=== PATIENT | female | born 1970 | race Caucasian/White ===

== ENCOUNTER 2022-12-01 20:26 | Emergency (ER) | payer OTHER, SELFPAY ==
[2022-12-01 20:36] VITALS: BP 106/71; PULSE 93; RESP 16; TEMP 36.3; O2SAT 98; BMI 21.8
[2022-12-01 23:16] LABS: Lactate* 0.6 mmol/L (0.5-1.9)
[2022-12-01 23:19] LABS: Basophils Absolute Auto 0.06 K/uL (0.00-0.30); Basophils Percent Auto 0.8 % (0.0-3.0); Eosinophils Absolute Auto 0.11 K/uL (0.00-0.50); Eosinophils Percent Auto 1.4 % (0.0-7.0); Hematocrit 35.3 % (33.0-51.0); Hemoglobin* 11.3 gm/dL (12.0-16.0); Immature Granulocytes Abs Auto 0.05 K/uL (0.00-0.30); Immature Granulocytes Pct Auto 0.6 %; Lymphocytes Absolute Auto 2.64 K/uL (0.90-2.90); Lymphocytes Percent Auto 34.2 % (20-44); Mean Corpuscular HGB Conc 32 gm/dL (32-36); Mean Corpuscular Hemoglobin 29 pg (26-34); Mean Corpuscular Volume 89 fL (80-100); Monocytes Percent Auto 9.1 % (0.0-11.0); Neutrophils Absolute Auto 4.16 K/uL (1.7-7.0); Neutrophils Percent Auto 53.9 % (42.0-72.0); Platelet Count* 325 K/uL (140-440); RDW Coefficient of Variation % 13.8 % (11.5-15.5); Red Blood Count 3.95 m/uL (4.00-5.20); White Blood Count* 7.72 K/uL (4.50-11.00)
[2022-12-01 23:20] LABS: Slide Review Reflex No
[2022-12-01 23:33] LABS: Albumin* 4.5 g/dL (3.3-5.0); Chloride* 95 mmol/L (96-114)
[2022-12-01 23:34] LABS: Sodium* 136 mmol/L (135-149)
[2022-12-01 23:36] LABS: Anion Gap 9 mEq/L (7-15); Aspartate Amino Transferase* 29 U/L (12-35); Bilirubin Total* 0.4 mg/dL (0.1-1.5); Carbon Dioxide* 32 mmol/L (20-32); Est. Creatinine Clearance* 52.05; Estimated Glomerular Filt Rate 68 ml/min; Total Protein* 7.8 g/dL (6.0-8.3)
[2022-12-01 23:37] LABS: Alanine Aminotransferase* 18 U/L (4-35); Alkaline Phosphatase* 78 U/L (40-150); Blood Urea Nitrogen* 20 mg/dL (7-30); Calcium* 9.9 mg/dL (8.4-10.6); Glucose* 83 mg/dL (60-115); Lipase* 221 U/L (23-300)
[2022-12-01 23:40] LABS: C Reactive Protein* < 0.5 mg/dL (0.5-1.0)
[2022-12-01] MEDS: POTASSIUM BICARB 25 MEQ EFFERVESCENT TAB 50 MEQ PO (23:47)
[2022-12-01 23:56] LABS: Magnesium* 2.3 mg/dL (1.5-2.6)
[2022-12-02 00:30] LABS: Appearance Urine Slightly Cloudy (Clear); Bilirubin Urine Negative (Negative); Blood Urine Negative (Negative); Color Urine Yellow (Yellow); Glucose Urine Negative (Negative); Ketones Urine Negative (Negative); Leukocyte Esterase Urine Trace (Negative); Nitrite Urine Negative (Negative); Protein Urine Negative (Negative); Urobilinogen Urine 0.2 (0.2-1.0); pH Urine 5.5 (5.0-8.5)
[2022-12-02 00:38] LABS: Bacteria Urine Moderate; RBC Urine 0-2 (0-2); Squamous Epithelial Cell Urine Moderate (None-Few); WBC Urine 0-2 (0-5)
[2022-12-02 01:00] VITALS: BP 121/76; PULSE 72; RESP 16; O2SAT 98
--- NOTE | 2022-12-02 01:02 | ED_ITS ---
HPI - General Adult General Date Seen: 12/02/22 Chief complaint: Abdominal Pain Stated complaint: Stomach pain Time Seen by Provider: 12/01/22 22:41 Source: patient Mode of arrival: ambulatory Limitations: no limitations History of Present Illness HPI narrative: Patient is a 52-year-old male who normally goes to a doctor at [facility], and also apparently has been seen at [facility] for multiple surgeries. She has a history of chronic abdominal pain which is historically in the left upper quadrant. She tells me that she was told this was due to a ?nerve bundle, or at least that is what it was attributed to is no one could really figure out what the pain was from. She has had spinal stimulators, tens unit, lidocaine patches as ways to manage this pain. She has been dealing with it for 10 years. It sounds as if this has been managed at [facility], she has seen a GI specialist, and she has her regular doctor as well. We have not seen her previously. She has had a CT scan in the recent past, she is not certain exactly when. She was supposed to get a colonoscopy at some point during [facility] but it did not happen as she says that she failed to follow-up. In any case she says over the past week her pain has been worse and she feels that her stomach is abnormally gurgly. She also feels bloated. She alternates between constipation and diarrhea. She does believe that she has been diagnosed with irritable bowel syndrome previously and she takes Hycosamine. She has not had vomiting recently. She denies fevers. No black or bloody stools. No urinary symptoms. Related Data Home Medications Medication Instructions Recorded Confirmed citalopram 20 mg tablet 20 mg PO 04/22/22 04/22/22 hyoscyamine sulfate 0.125 mg tablet 0.125 mg PO 04/22/22 04/22/22 Tylenol 12/01/22 dextroamphetamine-amphetamine 5 mg 1 tab PO DAILY 12/01/22 12/01/22 tablet dextroamphetamine-amphetamine ER 1 cap PO DAILY 12/01/22 12/01/22 30 mg 24hr capsule,extend release (Adderall XR) ibuprofen 12/01/22 Previous Rx's Medication Instructions Recorded potassium chloride 20 mEq 20 meq PO DAILY #10 tabs 12/02/22 tablet,extended release Allergies Allergy/AdvReac Type Severity Reaction Status Date / Time ketamine Allergy Verified 12/01/22 20:40 gabapentin Allergy Unknown Uncoded 04/22/22 18:13 Tramadol Allergy Unknown Uncoded 04/22/22 18:13 Review of Systems Status of ROS: Reports: 6 or more systems reviewed and unremarkable except as noted in History and below [facility] Social History Smoking Status: Never smoker How often do you have a drink containing alcohol: monthly or less AUDIT-C Alcohol total score: 1 Non-prescribed substance use: denies use Exam Narrative: Exam Narrative: Vital signs as noted above. In general, an alert, nontoxic woman. Breathing easily, appears comfortable. Head: Normocephalic, atraumatic. Eyes: Pupils are equal reactive. Extraocular movements are full. Conjunctivae are normal. ENT: Mucous membranes are moist. Neck: Supple without lymphadenopathy. Heart: Regular rate and rhythm. No murmur or rub. Lungs: Clear bilaterally. No increased work of breathing, crackles or wheezes. Abdomen: Soft, mild diffuse tenderness without rebound guarding or rigidity. She seems to intentionally protrude her abdomen during the exam and then relax it afterwards. Extremities: Well perfused. No edema. No calf tenderness. Pulses intact. Neurologic: Patient is alert and oriented to person and place. Speech is fluent. Face is symmetric. Moves all extremities equally. Affect: Labile. Skin: Warm and dry. Well perfused. Const: Vital Signs, click to edit/add: Vital Signs - 24 hr 12/01/22 20:36 Temperature 97.4 F L Pulse Rate [Left P ulse Oximeter] 93 Respiratory Rate 16 Blood Pressure [Ri ght Upper Arm] 106/71 Pulse Oximetry 98 Oxygen Delivery Me thod Room Air Documenting provider has reviewed patient's vital signs: yes Course Course ED Course: I suggested to her that we start with some labs. I felt that as the symptoms seem to be somewhat acute on chronic that if labs were normal with symptoms ongoing for a week that imaging was likely to be unrevealing. Her white count returned normal with the normal diff, hemoglobin was 11.3. Her potassium was low at 3 magnesium was normal. Sodium was normal, BUN and creatinine were normal. LFTs were within normal limits, CRP was less than 0.5. Lipase was 221. UA was negative. No ketones, 0-2 red cells, 0-2 white cells. Lactate was 0.6. I have reviewed all this with her. I did give her 50 mEq of potassium and prescribed potassium for home replacement. She asked what she should take at home for pain. I have reviewed with her that I would stick with ibuprofen and/or Tylenol. I do not feel comfortable changing her irritable bowel medications as I simply do not have a lot of experience treating irritable bowel and I do not know the progression of medications which is recommended. I have suggested that she contact her primary doctor through their portal tomorrow and ask for recommendations. I do think with a week of symptoms, a benign exam and completely normal labs that imaging is simply not needed tonight. She is clearly upset with me, she started to leave without having her IV taken out and had to stop her to allow the nurse to take out her IV. She was given discharge instructions. Vital Signs Vital signs: Initial Vital Signs Temperature 97.4 F L 12/01/22 20:36 Temperature Source Temporal Artery Scan 12/01/22 20:36 Pulse Rate 93 12/01/22 20:36 Respiratory Rate 16 12/01/22 20:36 Blood Pressure 106/71 12/01/22 20:36 Blood Pressure Mean 82 12/01/22 20:36 Blood Pressure Position Sitting 12/01/22 20:36 Pulse Oximetry 98 12/01/22 20:36 Oxygen Delivery Method Room Air 12/01/22 20:36 Vital Signs Temperature 97.4 F L 12/01/22 20:36 Pulse Rate 93 12/01/22 20:36 Respiratory Rate 16 12/01/22 20:36 Blood Pressure 106/71 12/01/22 20:36 Pulse Oximetry 98 12/01/22 20:36 Oxygen Delivery Method Room Air 12/01/22 20:36 Temperature 97.4 F L 12/01/22 20:36 Pulse Rate 93 12/01/22 20:36 Respiratory Rate 16 12/01/22 20:36 Blood Pressure 106/71 12/01/22 20:36 Pulse Oximetry 98 12/01/22 20:36 Oxygen Delivery Method Room Air 12/01/22 20:36 Medical Decision Making Lab Data Labs: Lab Results 12/01/22 12/02/22 Range/Units 23:10 00:15 WBC 7.72 (4.50-11.00) K/uL RBC 3.95 L (4.00-5.20) m/uL Hgb 11.3 L (12.0-16.0) gm/dL Hct 35.3 (33.0-51.0) % MCV 89 (80-100) fL MCH 29 (26-34) pg MCHC 32 (32-36) gm/dL RDW Coeff of Alejandro 13.8 (11.5-15.5) % Plt Count 325 (140-440) K/uL Neut % (Auto) 53.9 (42.0-72.0) % Lymph % (Auto) 34.2 (20-44) % Mcpherson % (Auto) 9.1 (0.0-11.0) % Eos % (Auto) 1.4 (0.0-7.0) % Baso % (Auto) 0.8 (0.0-3.0) % Neut # (Auto) 4.16 (1.7-7.0) K/uL Lymph # (Auto) 2.64 (0.90-2.90) K/uL Mcpherson # (Auto) 0.70 (0.00-0.90) K/UL Eos # (Auto) 0.11 (0.00-0.50) K/uL Baso # (Auto) 0.06 (0.00-0.30) K/uL Abs Immat Gran (auto) 0.05 (0.00-0.30) K/uL Imm/Tot Granulo (auto) 0.6 % Sodium 136 (135-149) mmol/L Potassium 3.0 L (3.6-5.1) mmol/L Chloride 95 L (96-114) mmol/L Carbon Dioxide 32 (20-32) mmol/L Anion Gap 9 (7-15) mEq/L BUN 20 (7-30) mg/dL Creatinine 1.0 (0.5-1.5) mg/dL Estimated Creat Clear 52.05 Estimated GFR 68 ml/min Glucose 83 (60-115) mg/dL Lactate 0.6 (0.5-1.9) mmol/L Calcium 9.9 (8.4-10.6) mg/dL Magnesium 2.3 (1.5-2.6) mg/dL Total Bilirubin 0.4 (0.1-1.5) mg/dL Direct Bilirubin 0.0 (0.0-0.5) mg/dL AST 29 (12-35) U/L ALT 18 (4-35) U/L Alkaline Phosphatase 78 (40-150) U/L C-Reactive Protein < 0.5 L (0.5-1.0) mg/dL Total Protein 7.8 (6.0-8.3) g/dL Albumin 4.5 (3.3-5.0) g/dL Lipase 221 (23-300) U/L Urine Color Yellow (Yellow) Urine Appearance Slightly Cloudy A (Clear) Urine pH 5.5 (5.0-8.5) Ur Specific [place] 1.010 (1.000-1.030) Urine Protein Negative (Negative) Urine Glucose (UA) Negative (Negative) Urine Ketones Negative (Negative) Urine Blood Negative (Negative) Urine Nitrite Negative (Negative) Urine Bilirubin Negative (Negative) Urine Urobilinogen 0.2 (0.2-1.0) Ur Leukocyte Esterase Trace A (Negative) Urine RBC 0-2 (0-2) Urine WBC 0-2 (0-5) Ur Squamous Epith Cells Moderate A (None-Few) Urine Bacteria Moderate A (None) Discharge Plan Discharge Clinical Impression: Abdominal pain, Hypokalemia Patient Disposition: Home, Self-Care Condition: Stable Instructions: Hypokalemia (ED), Abdominal Pain (ED) Additional Instructions: All of your lab testing today was normal with the exception of your potassium which was somewhat low. Take potassium replacement as prescribed. I would recommend follow-up with your primary doctor for further discussion evaluation of your abdominal pain, and your potassium should also be rechecked. Colonoscopy may be indicated at this time. If you have new or worsening symptoms such as fever, vomiting, black or bloody stools, severe worsening pain, return to the emergency department for repeat evaluation. Prescriptions: New potassium chloride 20 mEq tablet extended release 20 meq PO DAILY Qty: 10 0RF No Action hyoscyamine sulfate 0.125 mg tablet 0.125 mg PO Patient Comments: TAKE 1 TABLET BY MOUTH EVERY 4 HOURS NEEDED citalopram 20 mg tablet 20 mg PO Patient Comments: TAKE 1 TABLET BY MOUTH EVERY DAY dextroamphetamine-amphetamine [Adderall XR] 30 mg capsule,extended release 24hr 1 cap PO DAILY dextroamphetamine-amphetamine 5 mg tablet 1 tab PO DAILY ibuprofen Tylenol Follow Up/Referrals: Sejal Mccurdy [employer] SERVICES MANAGER [Nurse Practitioner] - Stand Alone Forms: [employer] Info Instructions
== END 2022-12-02 01:10 | disposition home or self-care (01) ==
LOC: ED 12-02 00:02
PROVIDERS: Emergency Provider Emergency Medicine
DX: R10.9 Unspecified abdominal pain (principal); E87.6 Hypokalemia
CPT/HCPCS: 36415; 80048; 80076; 81001; 83605; 83690; 83735; 85025; 86140; 87086; 99283; 99284; A9270